=== PATIENT | male | born 1970 | race Two or more races ===

== ENCOUNTER 2025-01-24 13:45 | Emergency (ER) | payer MEDICAID, SELFPAY ==
[2025-01-24 13:47] VITALS: BMI 26.6
[2025-01-24 14:24] VITALS: BP 108/69; PULSE 63; RESP 18; TEMP 36.7; O2SAT 97
--- NOTE | 2025-01-24 14:24 | XR_ITS ---
Examination: Duplex scan of the lower extremity, unilateral right Date and time of exam: January 24, 2025, 1455 hrs. Indications: Right leg swelling beginning 5 days ago. Technique: Duplex scan of the extremity veins using B-mode/grayscale imaging and Doppler spectral analysis and color flow Attention is directed to internal echogenicity, compression and augmentation involving these veins, color flow assessment, spectral analysis Findings: Positive for extensive thrombus, nonocclusive involving right superficial femoral, popliteal, peroneal, posterior tibial veins Impression: Positive for extensive acute deep vein thrombus
--- NOTE | 2025-01-24 14:30 | EDNOTE_ITS ---
ED Extremity Problem RME/HPI General Chief complaint: Ankle/Foot Injury Stated complaint: SWELLING AND PAIN RIGHT FOOT x 3 WEEKS Time Seen by Provider: 01/24/25 14:01 Arrival date/time: 01/24/25 13:45 RME / HPI RME / HPI Narrative: DR. MORALES MAIN ED EVALUATION: 54 y/o male with Hx of Epilepsy presents to ED c/o LLE pain and swelling x 3 weeks. Denies any recent injury or trauma. Denies any history of DM and HTN. Denies fever, nausea, and vomiting. Denies shortness of breath or chest pain. No allergies to medications reported and does not take blood thinners. Also denies any travel requiring long period of sitting. Related Data Home Medications ?Medication ?Instructions ?Recorded ?Confirmed Phenytoin Sodium Extended * 2 cap PO BID #0 caps 08/26 (DILANTIN *) Previous Rx's ?Medication ?Instructions ?Recorded apixaban 5 mg (74 tabs) tablets in 5 mg PO BID #74 tab s 01/24/25 a dose pack (Eliquis DVT-PE Treat 30D Start) Allergies Allergy/AdvReac Type Severity Reaction Status Date / Time No Known Allergies Allergy Verified 01/24/25 13:51 Review of Systems Review of Systems Systems Reviewed: All systems reviewed, normal except as documented Past Medical History Past Medical History NEUROLOGIC: Positive Epilepsy Social History SMOKING STATUS: Never smoker ED Exam Narrative Physical exam: GEN. APPEARANCE: The patient is alert awake oriented X-3 in no distress, lying down comfortably, does not look ill/toxic. Patient has good eye contact. Patient is cooperative. VITALS: All vitals were reviewed and the pulse ox is 97% on room air which is normal according to my interpretation. HEENT: Normocephalic, atraumatic. Pupils are equal and reactive. Oral mucosa is moist. Patent Nares NECK: Supple, nontender, no thyromegaly, no meningismus, no JVD CHEST: Symmetrical, atraumatic, and with equal expansion , Nontender on palpation no deformity and no crepitus. CARDIOVASCULAR: Heart regular rhythm no murmur or gallop rub or extra beats. LUNGS: Clear to auscultation bilaterally with symmetrical chest rise. No laboring tachypnea or wheezing. No intercostal subcostal retraction. No rales and no rhonchi. ABDOMEN: Soft, flat, nontender to palpation, no guarding or rebound tenderness. There are no abnormal masses palpated. Active and normal bowel sounds. EXTREMITIES: Nontender. Diffuse unilateral swelling of the LLE, skin intact with no lesions. No cyanosis. Patient is able to move all 4 extremities well, with full ROM and good CSM. 2+ DP pulse present SKIN: Warm and dry, no jaundice or rashes noted. NEURO: Patient is REBOLLAR x 4, Cranial nerves II through XII grossly intact. There is no focal neurologic deficits noted. GCS is 15, PNS and [employer] appear grossly intact. PSYCHIATRIC: Patient is in normal mood and affect. Course Quality Measures none Orders Category Date Time Status US venous doppler LE RT Stat Exams 01/24/25 14:24 Completed CBC Stat Lab 01/24/25 16:47 Completed CMP [Comprehensive Metabolic Panel] Stat Lab 01/24/25 16:47 Completed Acetaminophen Tab [Tylenol Tab] Med 01/24/25 14:24 Discontinued 650 mg PO X1 ONE Apixaban [Eliquis] Med 01/24/25 18:19 Discontinued 10 mg PO X1 ONE Reevaluation(s) Reevaluation #1: No skin discoloration to the right thigh. Time: 13:42 Vital Signs Vital signs: Vital Signs Temperature 98.0 F 01/24/25 14:24 Pulse Rate 63 01/24/25 14:24 Respiratory Rate 18 01/24/25 14:24 Blood Pressure 108/69 01/24/25 14:24 Pulse Oximetry (%) 97 01/24/25 14:24 Oxygen Delivery Method Room Air 01/24/25 14:24 Extremity Problem MDM Narrative MDM Narrative:: Scribe Attestation: Paulina Howard am scribing for and in the presence of Dr. Morales. Provider Notation: Although this document has been carefully reviewed, there may still be some phonetic and other typographical errors. These errors are purely grammatical due to imperfections in the software program and should not be construed in any way to compromise the substance of the patient's medical care during this visit. Patient p/w swelling to the LE. Concern for DVT. Less likely cellulitis, abscess. Patient with intact distal pulses and compartments soft. Less likley arterial occlusion, less likely compartment syndrome. Ordered extremity u/s. Offered meds for symptom relief. LE u/s with extensive DVT. Labs w/o evidence of renal dysfunction. Patient w/o evidence of cerulea dolens. Provided patient with eliquis in the ED and started on anticoagulation starter pack. Advised to f./u with PCP this week for follow, hypercoag w.u and to continue anticoaguation for likely multiple months. Dc'd HD stable NAD. Patient data External records reviewed:: [facility] previous records (No prior ED records available for review.) Clinical information provided by:: patient Social determinants that could affect healthcare access:: none Patient has the following chronic illnesses:: Epilepsy How is presenting disease/condition affected by chronic disease/condition?: uneffected by Evaluation data The following diagnostics were reviewed and interpreted by me:: radiology exam(s) Lab and/or radiology exams considered but not ordered:: None Interpretation Summary: RADIOLOGY LLE Venous Doppler: Findings: Positive for extensive thrombus, nonocclusive involving right superficial femoral, popliteal, peroneal, posterior tibial veins Impression: Positive for extensive acute deep vein thrombus Medications / Prescriptions Medications or Prescriptions considered but not ordered:: None Medication administrations:: Medication Administration History Discontinued Medications Acetaminophen (Acetaminophen 325 Mg Tablet) 650 mg PO X1 ONE Stop: 01/24/25 14:25 Last Admin: 01/24/25 15:43 Dose: 650 mg Documented By: Apixaban (Apixaban 2.5 Mg Tablet) 10 mg PO X1 ONE Stop: 01/24/25 18:20 Last Admin: 01/24/25 18:39 Dose: 10 mg Documented By: VL See above if any. Consultations Consultation(s) initiated? (list below): No Diagnosis Extremity Problem Differential Diagnosis: gout, cellulitis, superficial thrombophlebitis, lower extremity edema and deep vein thrombosis of lower extremity Most likely diagnosis given after review of the tests above:: Deep vein thrombosis (DVT) of right lower extremity Admission Indicated Admission indicated?: not indicated Explain why admission is indicated or not indicated:: Patient does not meet admission criteria. Admission Request Was there a request for admission?: No Disposition Plan Disposition Plan: Discharge Discharge Attestation Discharge Attestation: The patient and all family members were given an opportunity to ask questions and understood the discharge instructions. Discharge instructions specifically effects, indications for sooner follow up or return to the emergency department, and the expected course of current diagnosis. Patient condition: Stable Critical Care Time Critical Care Time Critical Care Time: Yes Total Critical Care Time (min.): 45 Attestation: ?I spent 45 minutes of critical care time with this patient not including reportable procedures. There was an acute impairment of an organ system with a high probability of imminent or life threatening deterioration in the patient's condition. Interventions and changes required in the course of therapy are located in the chart. Time involved was spent in direct patient care, reviewing ancillary data, old records, consulting with decision makers, EMS, other doctors, giving orders and documenting. Discharge Plan Plan Patient Disposition: HOME (Self Care) Prescriptions/Referrals Prescriptions/Med Rec: Rodri Beckwith DVT-PE Treat 30D Start 5 mg (74 tabs) tablets,dose pack 5 mg PO BID Qty: 74 0RF No Action Phenytoin Sodium Extended * (DILANTIN *) 100 MG capsule 2 cap PO BID Qty: 0 Patient Comments: FOR SEIZURE CONTROL Referrals: No Primary/Family,Physician [Primary Care Provider] - In 1 week Problem List Clinical Impression: Deep vein thrombosis (DVT) of right lower extremity Patient/Caregiver Discharge Instructions Education Materials: DVT Complications, ED Deep Vein Thrombosis (DVT) Additional Instructions: Por favor hacer laura con garza medico de cabecera para discutir garza cuavulo en las piernas. Es importante que garza medico continue garza adelgazante de la nelia por los proximos 3-6 meses. Por favor evitar actividades donde se puede lastimar la hood, porque los adelagazantes de nelia la ponen en riesgo de hemorrhagia. Print Language: Bahamian Stand Alone Forms: Trish Award Info., Patient Portal Info Letter
[2025-01-24] MEDS: ACETAMINOPHEN 325 MG TABLET 650 MG PO (15:43)
[2025-01-24 17:02] LABS: Basophils # (Auto) 0.1 Thou/mm3 (0.0-0.2); Basophils % (Auto) 1 % (0-2.5); Eosinophils # (Auto) 0.3 Thou/mm3 (0.0-0.5); Eosinophils % (Auto) 3 % (0-10); Hematocrit 40.7 % (41.0-53.0); Hemoglobin 13.8 g/dL (13.5-16.0); Immature Granulocytes Auto 0.02 Thou/mm3 (0.00-0.00); Lymphocytes # (Auto) 2.3 Thou/mm3 (1.0-4.8); Lymphocytes % (Auto) 28 % (10-50); Mean Corpuscular HGB Conc 33.9 g/dl (31.0-37.0); Mean Corpuscular Hemoglobin 32.5 pg (25.0-35.0); Mean Corpuscular Volume 96 fL (80-100); Monocytes # (Auto) 0.6 Thou/mm3 (0.0-0.8); Monocytes % (Auto) 7 % (0-12); Neutrophils # (Auto) 5.0 Thou/mm3 (1.8-7.7); Neutrophils % (Auto) 61 % (37-80); Nucleated Red Blood Cell # 0.00 Thou/mm3 (0.00-0.00); Nucleated Red Blood Cell % 0 /100 WBC (0); Platelet Count 181 Thou/mm3 (140-440); RDW Standard Deviation 42.8 fL (35.1-43.9); Red Blood Count 4.25 Miln/mm3 (4.50-5.90); White Blood Count 8.3 Thou/mm3 (3.8-10.6)
[2025-01-24 17:42] LABS: Alanine Aminotransferase 17 U/L (10-49); Albumin, Serum 4.4 gm/dL (3.5-5.0); Albumin/Globulin Ratio 1.5 (1.2-2.2); Alkaline Phosphatase 96 U/L (46-116); Anion Gap 10 (7-16); Aspartate Amino Transferase 21 U/L (0-34); BUN/Creatinine Ratio 11 Ratio (12-20); Bilirubin,Total 0.4 mg/dL (0.3-1.2); Blood Urea Nitrogen 11 mg/dL (9-23); Calcium 9.7 mg/dL (8.3-10.6); Calcium (Corrected) 9.7 mg/dL (8.5-10.1); Carbon Dioxide 22.0 mMol/L (20.0-31.0); Chloride 105 mMol/L (98-107); Creatinine (Component) 1.0 mg/dL (0.6-1.3); Estimated Creatinine Clearance 81.7 mL/min (>60); Globulin 3.0 gm/dL (2.3-3.5); Glucose 92 mg/dL (74-106); Osmolality,Calculated 273 (275-295); Potassium 4.9 mMol/L (3.4-5.1); Sodium 137 mMol/L (136-145); Total Protein 7.4 gm/dL (5.7-8.2); eGFR > 60 See Note
[2025-01-24] MEDS: APIXABAN 2.5 MG TABLET 10 MG PO (18:39)
[2025-01-24 18:45] VITALS: BP 108/69; PULSE 59; RESP 18; O2SAT 100
== END 2025-01-24 18:48 | disposition home or self-care (01) ==
PROVIDERS: Emergency Provider Emergency Medicine
DX: I82.411 Acute embolism and thrombosis of right femoral vein (principal); I82.441 Acute embolism and thrombosis of right tibial vein; I82.451 Acute embolism and thrombosis of right peroneal vein; I82.431 Acute embolism and thrombosis of right popliteal vein
CPT/HCPCS: 36415; 80053; 85025; 93971; 99283; A9270

== ENCOUNTER → 2025-05-07 | Outpatient (CLI) | payer MEDICAID, SELFPAY ==
--- NOTE | 2025-05-07 08:54 | XR_ITS ---
Examination: Duplex scan of the lower extremity, unilateral right complete Date and time of exam: May 07, 2025, 0915 hours INDICATIONS: Positive for extensive acute DVT right lower extremity 01/24/2025, persistent right leg swelling for months Technique: Duplex scan of the extremity veins using B-mode/grayscale imaging and Doppler spectral analysis and color flow Attention is directed to internal echogenicity, compression and augmentation involving these veins, color flow assessment, spectral analysis Findings: Major deep venous structures in the extremity demonstrate normal course and caliber. There remains extensive thrombus, right superficial femoral popliteal and peroneal veins IMPRESSION: No significant improvement in extensive deep vein thrombus..
== END | disposition home or self-care (01) ==
PROVIDERS: Referring Provider Surgery Vascular Surgery; Visit Provider Surgery Vascular Surgery
DX: I83.891 Varicose veins of right lower extremity with other complications (principal)
CPT/HCPCS: 93971